=== PATIENT | female | born 1990 | race Caucasian/White ===

== ENCOUNTER 2020-03-07 23:22 | Emergency (ER) | payer MEDICAID ==
[~2020-03-07] VITALS: Ht 160 cm; Wt 127.0 kg
[2020-03-07 23:25] VITALS: BP 183/101
--- NOTE | 2020-03-07 23:30 | NUR ---
PT AMBULATED TO BED 09 WITH STEADY GAIT.
--- NOTE | 2020-03-07 23:41 | NUR ---
30 Y/O FEMALE C/O HEADACHE 04/11 RADIATING TO RIGHT SHOULDER X 2 DAYS. SHARP/PRESSURE PAIN/ PT STATES HAD "BELLS PALSY ATTACK" BEFORE AND IS NOW EXPERIENCING THE SAME PAIN TODAY. PT HYPERTENSIVE AT 183/101 MHX: DVT, "BELLS PALSY ATTACK" NKA RX: 2 TYLENOL PILLS 500 MG EACH G0FTICH AGO, WITH NO REFLIEF. Addendum: 03/07/20 at 2351 by [email or web address] TYLENOL TAKEN 3 HOURS AGO
--- NOTE | 2020-03-08 00:09 | NUR ---
Dr. Chang examining patient.
[2020-03-08] MEDS ORDERED: KETOROLAC 60 MG/2 ML VIAL IM ONE (00:10)
--- NOTE | 2020-03-08 00:16 | NUR ---
covering for relief for primary RN Tanmay----assumed pt care at this time.
[2020-03-08 00:50] VITALS: BP 150/90
--- NOTE | 2020-03-08 00:50 | NUR ---
Patient discharged with v/s stable. Written and verbal after care instructions given and explained. Patient alert, oriented and verbalized understanding of instructions. Ambulatory with steady gait. All questions addressed prior to discharge. ID band removed. Patient advised to follow up with PMD. Rx of MOTRIN AND NORCO given. Patient educated on indication of medication including possible reaction and side effects. Opportunity to ask questions provided and answered.
== END 2020-03-08 00:50 | disposition home or self-care (01) ==
LOC: MED 23:22
DX: R51 Headache (principal); G51.0 Bell's palsy; Z98.890 Other specified postprocedural states
CPT/HCPCS: 81002; 81025; 96372; 99283; J1885

== ENCOUNTER 2021-03-11 16:29 | Emergency (ER) | payer MEDICAID ==
[~2021-03-11] VITALS: Ht 160 cm; Wt 124.0 kg
[2021-03-11 16:47] VITALS: BP 137/77
[2021-03-11] MEDS ORDERED: IBUP-2213 PO (17:58)
[2021-03-11 18:45] VITALS: BP 137/77
--- NOTE | 2021-03-11 18:45 | NUR ---
NO NURSING INTERVENTIONS GIVEN
== END 2021-03-11 18:45 | disposition home or self-care (01) ==
LOC: MED 16:29
DX: S60.222A Contusion of left hand, initial encounter (principal); Z79.1 Long term (current) use of non-steroidal anti-inflammatories (NSAID); W20.8XXA Other cause of strike by thrown, projected or falling object, initial encounter; Y93.89 Activity, other specified; Y92.89 Other specified places as the place of occurrence of the external cause; Y99.8 Other external cause status
CPT/HCPCS: 73130; 99283

== ENCOUNTER 2022-08-12 15:44 | Emergency (ER) | payer MEDICAID, OTHER ==
[~2022-08-12] VITALS: Ht 157.5 cm; Wt 112.9 kg
[~2022-08-12 15:44] MED LIST: IBUP-2213 PO
[2022-08-12 15:50] VITALS: BP 127/65
--- NOTE | 2022-08-12 16:15 | NUR ---
32YO FEMALE PT C/O SHARP 9/10 PELVIC PAIN [id number]. REPORTS SUDDEN INTERMITTENT EPISODES ALONG W/ NAUSEA. DENIES TAKING MEDICATION, VAGINAL BLEEDING/DISCHARGE, V/D, FEVER OR CHILLS. IUD IN PLACE. PT AAOX4, NO VISIBLE DISTRESS. RESPIRATIONS EVEN AND UNLABORED. HX:DENIES NKA
--- NOTE | 2022-08-12 16:28 | NUR ---
Female Hand Ironer accompanied female patient for Pelvic Exam.
--- NOTE | 2022-08-12 16:34 | NUR ---
US AT BEDSIDE
[2022-08-12 16:37] LABS: APPEARANCE,URINE CLEAR (CLEAR); BILIRUBIN,URINE NEGATIVE (NEGATIVE); BLOOD, URINE NEGATIVE (NEGATIVE); COLOR,URINE YELLOW (YELLOW); LEUKOCYTE ESTERASE ,URINE NEGATIVE (NEGATIVE); NITRITE, URINE NEGATIVE (NEGATIVE); UGLUCOSE NEGATIVE (NEGATIVE)
[2022-08-12] MEDS ORDERED: IBUP-2213 PO (17:41)
[2022-08-12 17:55] VITALS: BP 135/78
--- NOTE | 2022-08-12 17:55 | NUR ---
Patient discharged with v/s stable. Written and verbal after care instructions FOR PELVIC PAIN given and explained. Patient alert, oriented and verbalized understanding of instructions. Ambulatory with steady gait. All questions addressed prior to discharge. ID band removed. Patient advised to follow up with PMD. Rx of IBUPROFEN given. Opportunity to ask questions provided and answered.
== END 2022-08-12 17:55 | disposition home or self-care (01) ==
LOC: MED 15:44
DX: N88.8 Other specified noninflammatory disorders of cervix uteri (principal)
CPT/HCPCS: 76830; 81003; 81025; 87086; 87210; 99284; Q0092

== ENCOUNTER 2022-09-06 21:28 | Emergency (ER) | payer OTHER ==
[~2022-09-06] VITALS: Ht 157.5 cm; Wt 111.1 kg
[2022-09-06 21:41] VITALS: BP 139/89
--- NOTE | 2022-09-06 21:47 | NUR ---
pt to bed 8
--- NOTE | 2022-09-06 22:41 | NUR ---
32YR OLD FEMALE BIB SELF C/O LL BACK PAIN . STARTED TODAY DENIES FEVER N/V/D. PT IS A&OX4. DENIES ANY KNOWN INJURY OR TRAUMA. DENIES URINATION PAIN OR DIFFICULTY. 8/10 SHARP CONST PAIN. BED AT LOWEST POSITION SIDE RAILS UP X1 NKDA NO MED HX
--- NOTE | 2022-09-06 22:41 | NUR ---
URINE COLLECTED AND SENT
[2022-09-06] MEDS ORDERED: IBUP-2213 PO (22:57)
[2022-09-06] MEDS ORDERED: ACET-10509 PO (22:57)
--- NOTE | 2022-09-06 23:14 | NUR ---
Patient discharged with v/s stable. Written and verbal after care instructions given and explained. Patient alert, oriented and verbalized understanding of instructions. Ambulatory with steady gait. All questions addressed prior to discharge. ID band removed. Patient advised to follow up with PMD. Rx of TYLENOL EXTRA STRENGTH IBUPROFEN given. Patient educated on indication of medication including possible reaction and side effects. Opportunity to ask questions provided and answered.
--- NOTE | 2022-09-06 23:17 | NUR ---
The patient's care was reviewed and supervised by Kathy Amador RN.
== END 2022-09-06 23:14 | disposition home or self-care (01) ==
LOC: MED 21:28
DX: S39.012A Strain of muscle, fascia and tendon of lower back, initial encounter (principal); Z79.899 Other long term (current) drug therapy; Z79.1 Long term (current) use of non-steroidal anti-inflammatories (NSAID); X58.XXXA Exposure to other specified factors, initial encounter; Y92.89 Other specified places as the place of occurrence of the external cause; Y93.89 Activity, other specified; Y99.8 Other external cause status
CPT/HCPCS: 81025; 99282

== ENCOUNTER 2022-09-10 21:19 | Emergency (ER) | payer OTHER ==
[~2022-09-10] VITALS: Ht 157.5 cm; Wt 111.1 kg
[~2022-09-10 21:19] MED LIST changes: +ACET-10509 PO
[2022-09-10 21:25] VITALS: BP 145/90
--- NOTE | 2022-09-10 21:28 | NUR ---
TO LOBBY A/W BED AMBULATORY
--- NOTE | 2022-09-11 00:56 | NUR ---
pt to bed #4
--- NOTE | 2022-09-11 01:00 | NUR ---
Patient resting in bed, A/Ox4, chest rise and fall symmetrical, no s/s of distress, patient on monitor.
--- NOTE | 2022-09-11 01:01 | NUR ---
ER Physician assessing patient.
[2022-09-11] MEDS ORDERED: diazePAM 5 MG TAB PO ONE (01:10)
[2022-09-11] MEDS ORDERED: KETOROLAC 30 MG/ML VIAL IM ONE (01:10)
[2022-09-11 01:30] LABS: APPEARANCE,URINE CLEAR (CLEAR); BILIRUBIN,URINE NEGATIVE (NEGATIVE); BLOOD, URINE NEGATIVE (NEGATIVE); COLOR,URINE YELLOW (YELLOW); LEUKOCYTE ESTERASE ,URINE NEGATIVE (NEGATIVE); NITRITE, URINE NEGATIVE (NEGATIVE); UGLUCOSE NEGATIVE (NEGATIVE)
--- NOTE | 2022-09-11 01:30 | NUR ---
Patient to radiology.
--- NOTE | 2022-09-11 01:45 | NUR ---
Patient back from radiology.
[2022-09-11] MEDS ORDERED: NAPR-54 PO (03:10)
[2022-09-11] MEDS ORDERED: LID5T TP (03:10)
[2022-09-11] MEDS ORDERED: CYCL-711 PO (03:10)
[2022-09-11 03:25] VITALS: BP 132/85
--- NOTE | 2022-09-11 03:25 | NUR ---
Patient discharged with v/s stable. Written and verbal after care instructions given and explained. Patient alert, oriented and verbalized understanding of instructions. Ambulatory with steady gait. All questions addressed prior to discharge. ID band removed. Patient advised to follow up with PMD. Rx of FLEXERIL, LIDODER, NAPROSYN given. Patient educated on indication of medication including possible reaction and side effects. Opportunity to ask questions provided and answered.
== END 2022-09-11 03:25 | disposition home or self-care (01) ==
LOC: MED 21:19
DX: S39.012A Strain of muscle, fascia and tendon of lower back, initial encounter (principal); Z79.899 Other long term (current) drug therapy; X58.XXXA Exposure to other specified factors, initial encounter; Y93.89 Activity, other specified; Y92.89 Other specified places as the place of occurrence of the external cause; Y99.8 Other external cause status
CPT/HCPCS: 72080; 81003; 81025; 96372; 99284; J1885

== ENCOUNTER 2022-10-05 20:16 | Emergency (ER) | payer OTHER ==
[~2022-10-05] VITALS: Ht 157.5 cm; Wt 111.6 kg
[~2022-10-05 20:16] MED LIST changes: +CYCL-711 PO; +LID5T TP; +NAPR-54 PO
[2022-10-05 20:28] VITALS: BP 120/65
[2022-10-05 20:35] VITALS: BP 120/65
[2022-10-05 20:54] LABS: APPEARANCE,URINE CLEAR (CLEAR); BILIRUBIN,URINE NEGATIVE (NEGATIVE); BLOOD, URINE NEGATIVE (NEGATIVE); COLOR,URINE YELLOW (YELLOW); LEUKOCYTE ESTERASE ,URINE NEGATIVE (NEGATIVE); NITRITE, URINE NEGATIVE (NEGATIVE); UGLUCOSE NEGATIVE (NEGATIVE)
[2022-10-05 21:05] LABS: BASOPHILS % (AUTO) 0.4 % (0.0-2.0); EOSINOPHILS # (AUTO) 0.1 K/uL (0-0.4); EOSINOPHILS % (AUTO) 0.8 % (0.0-4.0); HEMATOCRIT 35.3 % (36-48); LYMPHOCYTES # (AUTO) 2.1 K/uL (2.5-16.5); LYMPHOCYTES % (AUTO) 25.6 % (20.5-51.1); MEAN CORPUSCULAR HEMOGLOBIN 32 pg (27-31); MEAN CORPUSCULAR HGB CONC 34 g/dL (33-37); MEAN CORPUSCULAR VOLUME 95.2 fL (80-94); MONOCYTES # (AUTO) 0.4 K/uL (0.8-1.0); MONOCYTES % (AUTO) 4.3 % (1.7-9.3); NEUTROPHILS # (AUTO) 5.8 K/uL (1.8-7.7); NEUTROPHILS % (AUTO) 68.9 % (42.2-75.2); PLATELET COUNT (AUTO) 311 K/uL (140-450); RED BLOOD CELL COUNT(AUTO) 3.71 MIL/uL (4.20-5.40); RED CELL DISTRIBUTION WIDTH 13.1 % (11.6-13.7); WHITE BLOOD COUNT (AUTO) 8.4 K/uL (4.8-10.8)
--- NOTE | 2022-10-06 00:22 | NUR ---
PT TAKEN TO CHAIR B
--- NOTE | 2022-10-06 00:31 | NUR ---
Dr. Coley examining patient.
[2022-10-06] MEDS ORDERED: ACET-10509 PO (00:43)
--- NOTE | 2022-10-06 00:53 | NUR ---
Patient discharged with v/s stable. Written and verbal after care instructions given and explained. Patient verbalized understanding. Ambulatory with steady gait. All questions addressed prior to discharge. Advised to follow up with PMD.
== END 2022-10-06 00:53 | disposition home or self-care (01) ==
LOC: MED 20:16
DX: O20.0 Threatened abortion (principal); Z3A.01 Less than 8 weeks gestation of pregnancy; Z79.899 Other long term (current) drug therapy
CPT/HCPCS: 36415; 76817; 81003; 81025; 84702; 85025; 86900; 86901; 99284; Q0092

== ENCOUNTER 2022-11-07 20:14 | Emergency (ER) | payer OTHER ==
[~2022-11-07] VITALS: Ht 157.5 cm; Wt 107.5 kg
[2022-11-07 21:26] VITALS: BP 126/75
--- NOTE | 2022-11-07 22:47 | NUR ---
PT TAKEN TO BED 12
[2022-11-07 23:34] LABS: APPEARANCE,URINE SL CLOUDY (CLEAR); BILIRUBIN,URINE NEGATIVE (NEGATIVE); BLOOD, URINE NEGATIVE (NEGATIVE); COLOR,URINE YELLOW (YELLOW); LEUKOCYTE ESTERASE ,URINE NEGATIVE (NEGATIVE); NITRITE, URINE NEGATIVE (NEGATIVE); PH,URINE 6.5 (5.0-9.0); UGLUCOSE NEGATIVE (NEGATIVE)
[2022-11-07] MEDS ORDERED: ACETAMINOPHEN EXTRA STRENGTH 500 MG TAB PO ONE (23:35)
--- NOTE | 2022-11-07 23:54 | NUR ---
Ultrasound at bedside.
[2022-11-08 01:18] VITALS: BP 137/84
== END 2022-11-08 01:17 | disposition home or self-care (01) ==
LOC: MED 20:14
DX: O00.01 Abdominal pregnancy with intrauterine pregnancy (principal); Z3A.11 11 weeks gestation of pregnancy; Z79.899 Other long term (current) drug therapy
CPT/HCPCS: 76801; 81003; 81025; 87491; 99284; Q0092

== ENCOUNTER 2022-12-23 13:22 | Emergency (ER) | payer OTHER ==
[~2022-12-23] VITALS: Ht 157.5 cm; Wt 108.9 kg
[2022-12-23 13:33] VITALS: BP 133/60
--- NOTE | 2022-12-23 13:42 | NUR ---
DR ZELAYA IN ROOM FOR EXAM
--- NOTE | 2022-12-23 13:51 | NUR ---
PT STATES SHE'S HAD DYSURIA AND LOWER ABD CRAMPING X 3 DAYS, INTERMITTENT. STATES SHE HAS A LUMP TO LABIA THAT SHE NOTICED TODAY. PT REORTS SHE 18 WEEKS , DENIES VAGINAL PRESSURE/CLOTS OR BLEEDING. DENIES FEVERS/CHILLS, MILD NAUSEA, NO VOMITTING. PT IN NAD. RESP EVEN AND UNLABORED, ON RA @98%. SKIN W/D/I
--- NOTE | 2022-12-23 14:11 | NUR ---
FHT DONE BY GRACIA YADAV VIA US, PT TOLERATED WELL.
[2022-12-23 14:55] LABS: BILIRUBIN,URINE NEGATIVE (NEGATIVE); BLOOD, URINE 2+ (NEGATIVE); COLOR,URINE YELLOW (YELLOW); LEUKOCYTE ESTERASE ,URINE 1+ (NEGATIVE); NITRITE, URINE NEGATIVE (NEGATIVE); PH,URINE 7.5 (5.0-9.0); UGLUCOSE NEGATIVE (NEGATIVE)
[2022-12-23 15:01] LABS: APPEARANCE,URINE HAZY (CLEAR)
[2022-12-23 15:07] LABS: RBC,URINE >100 /HPF (0-5)
[2022-12-23] MEDS ORDERED: CEPH-588 PO (15:31)
--- NOTE | 2022-12-23 15:51 | NUR ---
NO ACUTE CHNAGES IN CONDITION, PT IN NAD.
[2022-12-23 16:05] VITALS: BP 129/59
== END 2022-12-23 16:14 | disposition home or self-care (01) ==
LOC: MED 13:22
DX: O26.892 Other specified pregnancy related conditions, second trimester (principal); O23.592 Infection of other part of genital tract in pregnancy, second trimester; Z3A.18 18 weeks gestation of pregnancy; Z79.899 Other long term (current) drug therapy
CPT/HCPCS: 81001; 81025; 87086; 99283

== ENCOUNTER 2023-01-29 12:35 | Observation (INO) | payer OTHER ==
[~2023-01-29] VITALS: Ht 157.5 cm; Wt 108.0 kg
[~2023-01-29 12:35] MED LIST changes: +CEPH-588 PO
[2023-01-29] MEDS ORDERED: PNV91TAB8 PO (13:03)
[2023-01-29] MEDS ORDERED: ENOX40SY SC (13:03)
[2023-01-29 13:49] VITALS: BP 118/64; PULSE 76; RESP 18; TEMP 98.5
== END 2023-01-29 15:10 | disposition home or self-care (01) ==
LOC: MLD 12:35
PROVIDERS: ADMIT Obstetrics & Gynecology; ATTEND Obstetrics & Gynecology
DX: O26.892 Other specified pregnancy related conditions, second trimester (principal); R10.9 Unspecified abdominal pain; R10.2 Pelvic and perineal pain; Z20.822 Contact with and (suspected) exposure to COVID-19; O26.852 Spotting complicating pregnancy, second trimester; Z3A.23 23 weeks gestation of pregnancy
CPT/HCPCS: 87426; G0378; G0379

== ENCOUNTER 2023-10-17 20:43 | Emergency (ER) | payer OTHER ==
[~2023-10-17] VITALS: Ht 160 cm; Wt 129.7 kg
[~2023-10-17 20:43] MED LIST changes: -ACET-10509 PO; -CEPH-588 PO; -CYCL-711 PO; +ENOX40SY SC; -IBUP-2213 PO; -LID5T TP; -NAPR-54 PO; +PNV91TAB8 PO
[2023-10-17 20:54] VITALS: BP 153/98; PULSE 78; RESP 16; TEMP 97.3; O2SAT 99
[2023-10-18] MEDS: KETOROLAC 60 MG/2 ML VIAL IM ONE (01:24)
[2023-10-18 02:08] LABS: APPEARANCE,URINE CLEAR (CLEAR); BILIRUBIN,URINE NEGATIVE (NEGATIVE); BLOOD, URINE NEGATIVE (NEGATIVE); COLOR,URINE YELLOW (YELLOW); LEUKOCYTE ESTERASE ,URINE NEGATIVE (NEGATIVE); NITRITE, URINE NEGATIVE (NEGATIVE); PROTEIN,URINE 1+ (NEGATIVE); UGLUCOSE NEGATIVE (NEGATIVE); UROBILINOGEN,URINE 0.2 EU/dL (0.2 - 1)
[2023-10-18] MEDS ORDERED: NAPR-54 PO (02:42)
[2023-10-18 02:48] VITALS: BP 138/80; PULSE 80; RESP 16; TEMP 98; O2SAT 100
== END 2023-10-18 02:48 | disposition home or self-care (01) ==
LOC: MED 20:43
DX: S33.5XXA Sprain of ligaments of lumbar spine, initial encounter (principal); R11.2 Nausea with vomiting, unspecified; Z79.899 Other long term (current) drug therapy; X58.XXXA Exposure to other specified factors, initial encounter; Y93.89 Activity, other specified; Y92.89 Other specified places as the place of occurrence of the external cause; Y99.8 Other external cause status
CPT/HCPCS: 81003; 96372; 99283; J1885

== ENCOUNTER 2023-12-13 18:36 | Emergency (ER) | payer OTHER ==
[~2023-12-13] VITALS: Ht 157.5 cm; Wt 124.9 kg
[~2023-12-13 18:36] MED LIST changes: +NAPR-337 PO
[2023-12-13 18:41] VITALS: BP 142/89; PULSE 85; RESP 18; TEMP 97; O2SAT 98
[2023-12-13 19:28] VITALS: O2SAT 98
[2023-12-13] MEDS: ACETAMINOPHEN EXTRA STRENGTH 500 MG TAB PO ONE (20:03)
[2023-12-13 20:25] LABS: BASOPHILS % (AUTO) 0.5 % (0.0-2.0); EOSINOPHILS # (AUTO) 0.1 K/uL (0-0.4); EOSINOPHILS % (AUTO) 0.7 % (0.0-4.0); HEMATOCRIT 38.6 % (36-48); LYMPHOCYTES # (AUTO) 2.2 K/uL (2.5-16.5); LYMPHOCYTES % (AUTO) 23.5 % (20.5-51.1); MEAN CORPUSCULAR HEMOGLOBIN 31 pg (27-31); MEAN CORPUSCULAR HGB CONC 34 g/dL (33-37); MEAN CORPUSCULAR VOLUME 92.7 fL (80-94); MONOCYTES # (AUTO) 0.5 K/uL (0.8-1.0); MONOCYTES % (AUTO) 5.3 % (1.7-9.3); NEUTROPHILS # (AUTO) 6.4 K/uL (1.8-7.7); PLATELET COUNT (AUTO) 387 K/uL (140-450); RED BLOOD CELL COUNT(AUTO) 4.16 MIL/uL (4.20-5.40); RED CELL DISTRIBUTION WIDTH 13.1 % (11.6-13.7); WHITE BLOOD COUNT (AUTO) 9.2 K/uL (4.8-10.8)
[2023-12-13] MEDS: ONDANSETRON 4 MG/2 ML VIAL IVP ONE (20:30)
[2023-12-13] MEDS: KETOROLAC 30 MG/ML VIAL IVP ONE (20:31)
[2023-12-13 20:40] LABS: ANION GAP 10.6 (8-16); CALCIUM 9.1 mg/dL (8.5-10.1); CARBON DIOXIDE 30.4 mmol/L (21-32); CREATININE 0.9 mg/dL (0.6-1.3)
[2023-12-13 20:44] LABS: ALBUMIN 3.5 g/dL (3.4-5.0); BILIRUBIN,DIRECT 0.1 mg/dL (0.0-0.3); TOTAL BILIRUBIN 0.3 mg/dL (0.0-1.0); TOTAL PROTEIN, SERUM 7.5 g/dL (6.4-8.2)
[2023-12-13] MEDS: NACL 0.9% 1,000 ML IV ONE (20:45)
[2023-12-13 21:55] LABS: APPEARANCE,URINE CLEAR (CLEAR); BILIRUBIN,URINE NEGATIVE (NEGATIVE); BLOOD, URINE NEGATIVE (NEGATIVE); COLOR,URINE YELLOW (YELLOW); LEUKOCYTE ESTERASE ,URINE NEGATIVE (NEGATIVE); NITRITE, URINE NEGATIVE (NEGATIVE); PROTEIN,URINE NEGATIVE (NEGATIVE); UGLUCOSE NEGATIVE (NEGATIVE); UROBILINOGEN,URINE 0.2 EU/dL (0.2 - 1)
[2023-12-13 22:58] VITALS: O2SAT 98
== END 2023-12-13 23:11 | disposition home or self-care (01) ==
LOC: MED 18:36
DX: M54.50 Low back pain, unspecified (principal); R10.30 Lower abdominal pain, unspecified; R11.10 Vomiting, unspecified; R19.7 Diarrhea, unspecified; Z79.899 Other long term (current) drug therapy
CPT/HCPCS: 36415; 74176; 80048; 80076; 81003; 81025; 83690; 85025; 96361; 96374; 96375; 99285; J1885; J2405; J7030

== ENCOUNTER 2023-12-20 23:45 | Emergency (ER) | payer OTHER ==
[~2023-12-20] VITALS: Ht 157.5 cm; Wt 123.4 kg
[2023-12-20 23:50] VITALS: BP 130/88; PULSE 89; RESP 17; TEMP 97.8; O2SAT 98
[2023-12-21] MEDS ORDERED: CYCL-711 PO (00:22)
[2023-12-21] MEDS ORDERED: DICL20GE TP (00:22)
[2023-12-21] MEDS: KETOROLAC 60 MG/2 ML VIAL IM ONE (00:29)
[2023-12-21 00:30] VITALS: O2SAT 98
[2023-12-21] MEDS: LIDOCAINE 5% 1 EA PATCH TP ONE (00:30)
== END 2023-12-21 00:39 | disposition home or self-care (01) ==
LOC: MED 23:45
DX: S39.012A Strain of muscle, fascia and tendon of lower back, initial encounter (principal); M54.31 Sciatica, right side; Z79.899 Other long term (current) drug therapy; X58.XXXA Exposure to other specified factors, initial encounter; Y93.89 Activity, other specified; Y92.89 Other specified places as the place of occurrence of the external cause; Y99.8 Other external cause status
CPT/HCPCS: 96372; 99283; J1885

== ENCOUNTER 2024-02-15 19:06 | Emergency (ER) | payer OTHER ==
[~2024-02-15] VITALS: Ht 162.6 cm; Wt 131.5 kg
[~2024-02-15 19:06] MED LIST changes: +CYCL-711 PO; +DICL20GE TP
[2024-02-15 19:38] VITALS: BP 133/76; PULSE 86; RESP 14; TEMP 98.1; O2SAT 99
[2024-02-15] MEDS: IBUPROFEN 600 MG TAB PO ONE (21:34)
[2024-02-16] MEDS ORDERED: IBUP-2213 PO (00:41)
== END 2024-02-16 00:58 | disposition home or self-care (01) ==
LOC: MED 19:06
DX: S69.92XA Unspecified injury of left wrist, hand and finger(s), initial encounter (principal); R51.9 Headache, unspecified; M25.571 Pain in right ankle and joints of right foot; M25.512 Pain in left shoulder; M54.50 Low back pain, unspecified; R42 Dizziness and giddiness; Z98.890 Other specified postprocedural states; Z79.899 Other long term (current) drug therapy; W18.39XA Other fall on same level, initial encounter; Y92.89 Other specified places as the place of occurrence of the external cause; Y93.89 Activity, other specified; Y99.0 Civilian activity done for income or pay
CPT/HCPCS: 72110; 73030; 73110; 73610; 73630; 99284